=== PATIENT | female | born 1960 | race Hispanic/Latino ===

== ENCOUNTER 2017-10-30 23:22 | Emergency (ER) | payer BC ==
[~2017-10-30] VITALS: Ht 167.6 cm; Wt 90.3 kg
[~2017-10-30 23:22] MED LIST: [UNRECOGNIZED DRUG - OTHER]
[2017-10-30] MEDS ORDERED: SODIUM CHLORIDE FLUSH 10 ML SYR INJ PRN (23:45)
[2017-10-31] MEDS ORDERED: LORAZEPAM 1 MG TAB PO ONE (02:00)
[2017-10-31] MEDS ORDERED: ROBAXIN-750750 MG PEG (02:32)
[2017-10-31] MEDS ORDERED: VALIUM5 MG PO (02:33)
[2017-10-31 02:43] VITALS: BP 115/75
== END 2017-10-31 02:45 | disposition home or self-care (01) ==
LOC: FSED 23:22
DX: R07.89 Other chest pain (principal); R11.0 Nausea; S29.011A Strain of muscle and tendon of front wall of thorax, initial encounter; S16.1XXA Strain of muscle, fascia and tendon at neck level, initial encounter
CPT/HCPCS: 71046; 80048; 82553; 84484; 85025; 93005; 99284

== ENCOUNTER 2019-04-18 11:53 | Emergency (ER) | payer BC ==
[~2019-04-18] VITALS: Ht 167.6 cm; Wt 90.3 kg
[~2019-04-18 11:53] MED LIST changes: +ROBAXIN-750750 MG PEG; +VALIUM5 MG PO
--- NOTE | 2019-04-18 13:45 | Diagnostic Imaging Report ---
EXAMINATION: CXR 2 VIEW - HOPD INDICATION: Coughing, shortness of breath. COMPARISON: None FINDINGS: TUBES and LINES: None. LUNGS: Lungs are well inflated. Minimal patchy left basilar opacity, likely atelectasis. There is no evidence of lobar pneumonia or pulmonary edema. PLEURA: No pleural effusion or pneumothorax. HEART AND MEDIASTINUM: The cardiomediastinal silhouette is unremarkable. BONES AND SOFT TISSUES: No acute osseous abnormality. UPPER ABDOMEN: No free air under the diaphragm. IMPRESSION: No acute radiographic abnormality. Signed by: Dr. Kwame Balderas MD on 04/18/2019 1:42 PM
== END 2019-04-18 14:20 | disposition home or self-care (01) ==
LOC: FSED 11:53
DX: J20.9 Acute bronchitis, unspecified (principal)
CPT/HCPCS: 71046; 80053; 82553; 84484; 85025; 93005; 99284

== ENCOUNTER 2019-05-15 21:20 | Emergency (ER) | payer BC, OTHER ==
[~2019-05-15] VITALS: Ht 167.6 cm; Wt 90.3 kg
--- OUTSIDE RECORDS SUMMARY | 2019-05-15 21:22 | XMS REPORT ---
Author Author [facility] Organization [facility] Address Unknown Phone Unavailable Care Team Providers Care House Carpenter Helper Name Role Phone AVELINA PEREIRA Unavailable Unavailable Payers Payer Name Policy Type Policy Number Effective Date Expiration Date Problems This patient has no known problems. Allergies, Adverse Reactions, Alerts Allergy Name Allergy Type Status Severity Reaction(s) Onset Date Inactive Date Treating Clinician Comments No Known Allergies DA Active U 2018-09-18 00:00:00 No Known Allergies DA Active U 2018-06-15 00:00:00 No Known Allergies DA Active U 2015-07-06 00:00:00 Medications This patient has no known medications. Results Test Description Test Time Test Comments Text Results Atomic Results Result Comments CXR 2 VIEW - HOPD 2019-04-18 13:41:00 [place] [id number] Patient Name: BARBIE MORALES MR #: [id number] : 1960 Age/Sex: 59/F Req #: [id number] Adm Physician: Ordered by: AVELINA PEREIRA MD Report #: [id number] Location: [facility] Room/Bed: Procedure: [id number] HOPD/CXR 2 VIEW - HOPD Exam Date: 04/18/19 Exam Time: 1303 REPORT STATUS: Signed EXAMINATION: CXR 2 VIEW - HOPD INDICATION: Coughing, shortness of breath. COMPARISON: None FINDINGS: TUBES and LINES: None. LUNGS: Lungs are well inflated. Minimal patchy left basilar opacity, likely atelectasis. There is no evidence of lobar pneumonia or pulmonary edema. PLEURA: No pleural effusion or pneumothorax. HEART AND MEDIASTINUM: The cardiomediastinal silhouette is unremarkable. BONES AND SOFT TISSUES: No acute osseous abnormality. UPPER ABDOMEN: No free air under the diaphragm. IMPRESSION: No acute radiographic abnormality. Signed by: Dr. Melani Gutierrez MD on 04/18/2019 1:42 PM Dictated By: MELANI GUTIERREZ MD [id number] Transcribed By: CECILE on 04/18/19 1342 COPY TO: AVELINA PEREIRA MD
[2019-05-15 22:32] LABS: BASOPHILS % 0.2 % (0.0-1.0); EOSINOPHILS # (AUTO) 0.2 (0.0-0.4); EOSINOPHILS % 2.6 % (0.0-6.0); HEMATOCRIT 41.9 % (34.2-44.1); HEMOGLOBIN 13.6 g/dL (12.0-16.0); LYMPHOCYTES # (AUTO) 1.9 (1.0-3.2); LYMPHOCYTES % 21.9 % (18.0-39.1); MEAN CORPUSCULAR HEMOGLOBIN 27.3 pg (28-32); MEAN CORPUSCULAR HGB CONC 32.5 g/dL (31-35); MONOCYTES # (AUTO) 0.7 (0.2-0.8); MONOCYTES % 7.7 % (4.4-11.3); NEUTROPHILS # (AUTO) 5.7 (2.1-6.9); NEUTROPHILS % 67.2 % (38.7-80.0); PLATELET COUNT 209 x10e3/uL (140-360); RED BLOOD COUNT 4.99 x10e6/uL (3.6-5.1); RED CELL DISTRIBUTION WIDTH 13.7 % (11.7-14.4)
[2019-05-15 22:52] LABS: ALANINE AMINOTRANSFERASE 17 IU/L (0-55); ALBUMIN 3.7 g/dL (3.5-5.0); ALBUMIN/GLOBULIN RATIO 1.1 (0.8-2.0); ALKALINE PHOSPHATASE 74 IU/L (40-150); ANION GAP 12.3 mmol/L (8-16); BLOOD UREA NITROGEN 20 mg/dL (7-26); BUN/CREATININE RATIO 24 (6-25); CALCIUM 9.6 mg/dL (8.4-10.2); CARBON DIOXIDE 27 mmol/L (22-29); CHLORIDE 105 mmol/L (98-107); CREATININE, SERUM 0.83 mg/dL (0.57-1.11); EST GLOMERULAR FILTRATION RATE > 60 ML/MIN (60-); GLUCOSE 99 mg/dL (74-118); POTASSIUM 3.3 mmol/L (3.5-5.1); SODIUM 141 mmol/L (136-145)
--- NOTE | 2019-05-15 23:40 | Diagnostic Imaging Report ---
EXAMINATION: CHEST 2 VIEWS INDICATION: Cough, swollen feet COMPARISON: Chest radiograph 04/18/2019 FINDINGS: PA and lateral views TUBES and LINES: None. LUNGS: Lungs are well inflated. Lungs are clear. There is no evidence of pneumonia or pulmonary edema. PLEURA: No pleural effusion or pneumothorax. HEART AND MEDIASTINUM: The cardiomediastinal silhouette is unremarkable. BONES AND SOFT TISSUES: No acute osseous lesion. Soft tissues are unremarkable. Mild degenerative changes in the thoracic spine. UPPER ABDOMEN: No free air under the diaphragm. IMPRESSION: No acute thoracic abnormality. Signed by: Miguel Blue DO on 05/15/2019 11:37 PM
== END 2019-05-16 00:50 | disposition home or self-care (01) ==
LOC: ER 21:20
DX: R60.0 Localized edema (principal); J45.909 Unspecified asthma, uncomplicated; E03.9 Hypothyroidism, unspecified; M54.9 Dorsalgia, unspecified; G89.29 Other chronic pain; M19.90 Unspecified osteoarthritis, unspecified site; R00.0 Tachycardia, unspecified
CPT/HCPCS: 36415; 71046; 80053; 83880; 85025; 93005; 99283